=== PATIENT | female | born 1965 | race Caucasian/White ===

== ENCOUNTER → 2023-05-17 06:43 | Outpatient (REF) | payer BC, SELFPAY | LOC: MRI 06:43 | PROVIDERS: ATTENDING PHYSICIAN Family Medicine | DX: R40.4 Transient alteration of awareness (principal) | CPT/HCPCS: 70551 ==

== ENCOUNTER → 2023-07-25 09:17 | Day surgery (SDC) | payer BC, SELFPAY ==
[2023-07-25 09:53] VITALS: BMI 24.3
--- NOTE | 2023-07-25 11:53 | ITS.CL.IMPLP ---
[employer] - Implant Loop
Implant Loop
Procedure Report:
ILR implant
Date of Procedure: July 25, 2023
Patient : [id number]
Procedure: Insertable Loop Recorder Implant
Indication: Cryptogenic stroke
Implant: Reveal Linq 2: [email or web address]; Model# [id number]; Serial# [id number]
Technique: The patient was prepped and draped in the usual fashion. Local anesthetic was applied to the left prepectoral subcutaneous tissue. A subcutaneous pocket was created with blunt dissection. Hemostasis was excellent. The device was
placed in the pocket. The skin was closed with steri-strips. The estimated blood loss was minimal. There were no complications.
Final Programming: FVT 231 30/40 beats
VT 176 16 beats
Asystole 3 sec
Asher 30 bpm for 4 beats
AF On AF only.
Conclusion: Uncomplicated insertable loop implant.
Recommendation: Routine Reveal care.
cc: Dr. Cornelia Christian
== END | disposition home or self-care (01) ==
LOC: CATH 09:17
PROVIDERS: ATTENDING PHYSICIAN Internal Medicine Cardiovascular Disease; FAMILY PHYSICIAN Family Medicine; OTHER PHYSICIAN Internal Medicine Cardiovascular Disease
DX: I63.9 Cerebral infarction, unspecified (principal); Z09 Encounter for follow-up examination after completed treatment for conditions other than malignant neoplasm; Z86.73 Personal history of transient ischemic attack (TIA), and cerebral infarction without residual deficits
CPT/HCPCS: 33285; 93312; 93320; 93325; C1764

== ENCOUNTER → 2024-01-17 07:20 | Outpatient (REF) | payer BC, SELFPAY | LOC: PAVMRI 07:20 | PROVIDERS: ATTENDING PHYSICIAN Psychiatry & Neurology Neurology; FAMILY PHYSICIAN Family Medicine | DX: I63.9 Cerebral infarction, unspecified (principal) | CPT/HCPCS: 70544; 70549; A9585 ==